=== PATIENT | female | born 1985 | race Caucasian/White ===

== ENCOUNTER → 2022-05-05 | Outpatient (REF) ==
[~2022-05-05] MED LIST: IBUP80TA PO; MAPA500T17 PO; MILK10SU PO; PRENTAB74 PO
== END ==
LOC: M EMP 09:02
PROVIDERS: ATTEND Family Medicine
DX: Z11.52 Encounter for screening for COVID-19 (principal)

== ENCOUNTER → 2022-05-12 | Outpatient (REF) | LOC: M EMP 08:22 | PROVIDERS: ATTEND Family Medicine | DX: Z11.52 Encounter for screening for COVID-19 (principal) ==

== ENCOUNTER → 2024-12-19 | Outpatient (CLI) | payer OTHER, MEDICAID ==
[~2024-12-19] MED LIST changes: +ASPI-226 PO; +BUPR8SUB SL; +CETI-24 PO; +CITA40TA7 PO; +DOXE10CA PO; +GABA-1171 PO; +OMEP40CA5 PO; +TIZA10TA PO
== END ==
LOC: M ONCR 09:32
PROVIDERS: ATTEND General Practice
DX: C49.22 Malignant neoplasm of connective and soft tissue of left lower limb, including hip (principal); F17.200 Nicotine dependence, unspecified, uncomplicated; Z98.890 Other specified postprocedural states; Z80.8 Family history of malignant neoplasm of other organs or systems; Z79.82 Long term (current) use of aspirin; Z79.899 Other long term (current) drug therapy

== ENCOUNTER 2025-01-18 08:29 | Outpatient (RCR) | payer OTHER, MEDICAID | END 2025-01-22 | LOC: M ONCR 08:29 | PROVIDERS: ATTEND General Practice | DX: Z51.0 Encounter for antineoplastic radiation therapy (principal); C49.22 Malignant neoplasm of connective and soft tissue of left lower limb, including hip ==

== ENCOUNTER 2025-02-20 08:06 | Outpatient (RCR) | payer OTHER, MEDICAID ==
[~2025-02-20 08:06] MED LIST changes: +MELO15TA28 PO
== END 2025-02-22 ==
LOC: M ONCR 08:06
PROVIDERS: ATTEND General Practice
DX: Z51.0 Encounter for antineoplastic radiation therapy (principal); C49.22 Malignant neoplasm of connective and soft tissue of left lower limb, including hip